=== PATIENT | female | born 1980 | race Two or more races ===

== ENCOUNTER 2016-12-23 19:55 | Emergency (ER) | payer OTHER ==
[2016-12-23 21:34] LABS: URINE BILIRUBIN NEGATIVE (NEGATIVE); URINE BLOOD NEGATIVE (NEGATIVE); URINE GLUCOSE (UA) NEGATIVE (NEGATIVE); URINE LEUKOCYTE ESTERASE NEGATIVE (NEGATIVE); URINE NITRITE NEGATIVE (NEGATIVE); URINE PROTEIN NEGATIVE (NEGATIVE); URINE UROBILINOGEN NORMAL (0-1 mg/dl)
[2016-12-23 21:35] LABS: URINE APPEARANCE CLEAR; URINE COLOR YELLOW
== END 2016-12-23 22:44 | disposition home or self-care (01) ==
LOC: ED 19:55
DX: J32.9 Chronic sinusitis, unspecified (principal); F43.9 Reaction to severe stress, unspecified